=== PATIENT | male | born 1995 | race Caucasian/White ===

== ENCOUNTER 2022-03-17 16:22 | Observation (INO) | payer MEDICAID, SELFPAY ==
[2022-03-17 16:24] VITALS: BP 123/85; PULSE 81; RESP 18; TEMP 36.6; O2SAT 98; BMI 21.5
--- NOTE | 2022-03-17 16:38 | EDS_ITS ---
HPI History of Present Illness Chief Complaint: Substance Abuse Detail of Chief Complaint: Opiate use most of his life Informant: patient Onset/Context/Timing Onset: - (Years) Context: Gradual Onset Timing: Continuous Quality: Opiates Location: Snorts and injects recently Current Severity: Gone Maximum Severity: Moderate Worsened by: Abstinence Relieved by: Using Associated Symptoms Associated Symptoms: Positive for tremor and other: (Negative history of HIV and hepatitis. 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 Patient states he was discharged from palliative care in 2014. Since [address] drugs. He has never been in an inpatient setting. He was in an outpatient setting and on Suboxone in the past. He denies alcohol use. He does smoke. He understands that he is not permitted to smoke while on hospital grounds. Prior similar symptoms: No Recent Illness/Hospitalization: No PFSH PFSH Allergy/AdvReac Type Severity Reaction Status Date / Time No Known Allergies Allergy Verified 03/17/22 16:23 Social History (Updated 03/17/22 @ 16:[address] Romain Gomez MD) household members: none Smoking Status: Current every day smoker tobacco type: cigarettes alcohol intake: never substance use type: opiates ROS ROS ED Constitutional Constitutional ED: Denies chills, fever(s), subjective, sweats or weight loss Eyes Eyes: Denies blurry vision, change in vision or diplopia ENT ENT ED: Denies ear pain, rhinorrhea or sore throat Cardiovascular Cardiovascular: Denies chest pain, palpitations or racing heartbeat Respiratory/Chest Respiratory/Chest: Denies cough, dyspnea or dyspnea on exertion Gastrointestinal Gastrointestinal: Denies abdominal pain, diarrhea, nausea or vomiting Genitourinary Genitourinary ED: Denies dysuria or urinary frequency Musculoskeletal Musculoskeletal: Denies arthralgias, back pain, myalgias or neck pain Integumentary Denies abscess, Abrasions or rash Neurologic Neurologic: Denies headache(s), paresthesias or weakness Endocrine Endocrinology: Denies polydipsia, polyphagia or polyuria EXAM Physical Exam Const Vital Signs: 03/17/22 16:24 Temperature 97.8 F Temperature Source Temporal Pulse Rate 81 Respiratory Rate 18 Blood Pressure 123/85 H Blood Pressure Mean 97 Pulse Ox 98 Oxygen Delivery Method Room Air Positive well nourished and well developed General Appearance ED: well developed and NAD; Negative for pallor HEENT Reports TM's clear and moist mucous membranes HEENT Narrative: Normocephalic. atraumatic Tympanic Membrane ED: Yes TM's clear Eyes PERRL and EOMs intact bilaterally General Eye ED: Negative for pale conjunctiva or scleral icterus Neck no lymphadenopathy, supple and no JVD Lymph Lymphatic: no lymphadenopathy noted Resp normal respiratory effort and clear to auscultation bilaterally Cardio regular rate, regular rhythm, S1 normal heart sound, S2 normal heart sound and no murmurs GI soft to palpation, non-tender, non-distended and no masses Back/Spine no CVA tenderness Cervical Spine: Negative for cervical spine tenderness Thoracic Spine / Upper Back: Negative for thoracic spinal tenderness Lumbar Spine / Lower Back: Negative for lumbar spinal tenderness Neuro oriented x3, CN's II-XII intact bilaterally and no sensory deficits noted Sendy Coma Scale: document GCS findings Spontaneous Obeys Commands Oriented 15 Sensorium / Orientation: alert Motor Exam: strength 5/5 throughout Psych mental status grossly normal and thought process normal Skin General Skin Exam: Negative for jaundice or pallor Lesions: no lesions Rashes: no rashes MDM MDM MDM Narrative Medical decision making narrative: Longstanding opiate use. Patient sent in for hospitalization to treat his addiction. Patient was accepted by Dr. Ziggy Galvez at 10/11/2000. Lab Data Attestation: I reviewed the patient's lab results. (Addiction medicine labs were ordered. Per protocol hospitalist has been paged for admission. Patient understands rules.) Labs: Laboratory Results - last 24 hr 03/17/22 03/17/22 16:40 16:55 WBC 10.4 RBC 6.25 H Hgb 17.9 H Hct 51.1 MCV 81.8 MCH 28.6 MCHC 35.0 RDW Std Deviation 37.9 RDW Coeff of Betsy 12.7 Plt Count 151 MPV 11.5 Immature Gran % (Auto) 0.500 Neut % (Auto) 76.2 H Lymph % (Auto) 17.9 L [place] % (Auto) 4.6 Eos % (Auto) 0.5 Baso % (Auto) 0.3 Absolute Neuts (auto) 8.0 H Absolute Lymphs (auto) 1.87 Nucleated RBC % 0 Ur Drug Screen Comment Discharge Plan Dx/Rx/DC Orders Clinical Impression: Opiate addiction Disposition Disposition: Acute Care Hospital [facility]
--- NOTE | 2022-03-17 16:43 | CM.ED ---
Social Work Note Reason for Referral: Pt presents to [facility] for Substance Abuse/Detox SW met with pt. Pt confirms that he is at [facility] for detox and aware of rules. Pt states that he last used 1-2 hours ago. SW placed a call to Yomaira, Addiction Therapist, and updated on referral. Betty Smith ADDICTION PSYCHIATRIST, KITCH[employer] STEWARD[employer]
--- NOTE | 2022-03-17 16:49 | ED.RN ---
Patients belongings placed in patient bags. patient contract signed for detox
[2022-03-17 17:02] LABS: Absolute Lymphocyte Count 1.87 X10^3/uL (0.83-4.51); Basophil# 0.03 X10^3/uL; Basophil% 0.3 % (0-1); Eosinophil# 0.05 X10^3/uL; Eosinophils% 0.5 % (0-5); Hematocrit 51.1 % (40-54); Hemoglobin 17.9 g/dL (13.0-16.5); Lymphocyte # 1.87 X10^3/ul (0.83-4.51); Lymphocyte % 17.9 % (19-41); Mean Corpuscular Hgb 28.6 pg (27.0-32.0); Mean Corpuscular Volume 81.8 fL (80-94); Mean Platelet Vol. 11.5 fl (6.2-12.0); Monocyte# 0.48 X10^3/uL; Monocyte% 4.6 % (0-10); NRBC Flagged by Analyzer 0 % (0-5); Neutrophil # 7.95 X10^3/uL (2.7-7.7); Neutrophil % 76.2 % (47-70); Platelet Count 151 K/mm3 (150-450); RBC Distribution Width CV 12.7 % (11.6-14.6); RBC Distribution Width SD 37.9 fl (35.1-43.9); Red Blood Count 6.25 M/mm3 (4.6-6.2); White Blood Count 10.4 K/mm3 (4.4-11.0)
[2022-03-17 17:28] LABS: ALB/GLOB Ratio 1.1 RATIO (0.9-2.4); AST(SGOT) 142 U/L (15-37); Alanine Aminotransfer ALT/SGPT 108 U/L (16-61); Albumin, Serum 3.6 g/dL (3.2-5.0); Alkaline Phosphatase 110 U/L (45-117); Anion Gap 6 (5-15); BUN 12 mg/dL (7-18); BUN/Creat Ratio 13.9 RATIO (10-20); Calcium,Total 8.9 mg/dL (8.5-10.1); Chloride 106 mmol/L (98-107); Creatinine, Serum 0.87 mg/dL (0.70-1.30); EST Glomerular Filtration Rate 114 mL/min (>60); Est Glom Filt Rate - Afr Amer 138 mL/min (>60); Estimated Creatinine Clearance 111.09 ml/min; Globulin 3.3 g/dL (2.2-4.2); Glucose 100 mg/dL (74-106); Potassium 3.6 mmol/L (3.5-5.1); Protein, Total 6.9 g/dL (6.4-8.2); Sodium Level 140 mmol/L (136-145)
[2022-03-17 17:38] VITALS: BP 123/85; PULSE 81; RESP 18; TEMP 36.6; O2SAT 98
[2022-03-17 17:41] LABS: Amphetamine Urine VISTA POSITIVE (<1000 ng/mL); Barbiturate Urine VISTA NEGATIVE (< 200 ng/mL); Benzodiazepine Urine VISTA NEGATIVE (< 200 ng/mL); Cocaine Urine VISTA NEGATIVE (< 300 ng/mL); Ecstacy Urine VISTA POSITIVE (< 500 ng/mL); Methadone Urine VISTA NEGATIVE (< 300 ng/mL); PCP Urine VISTA NEGATIVE (< 25 ng/mL); THC Urine VISTA NEGATIVE (< 50 ng/mL); Vista UDS pH Range 5
[2022-03-17 17:59] VITALS: BP 116/73; PULSE 60; RESP 16; TEMP 36.7; O2SAT 100
[2022-03-17 18:00] VITALS: BMI 20.9
--- NOTE | 2022-03-17 18:39 | HP.PCM.HOS_ITS ---
HPI - General General Date of Admission: 03/17/22 Date of Service: 03/17/22 Chief Complaint: Desiring services for detox from opiates HPI Narrative DAVID ALMAGUER, is a 26 M who presents to the emergency room today at [facility] requesting services for detox from opiates. Patient has been a chronic opiate user since 2014, he was under palliative care at that time due to liver failure from a genetic reason. Patient underwent a liver transplant from his mother, he currently takes no antirejection medications. Patient states that he uses street drugs, he is not sure exactly what is in the drug-he believes it may be heroin or fentanyl, occasionally he states he uses methamphetamines. Patient denies any alcohol usage. Last time the patient used opiates was today. Patient snorts and injects them. Patient states he detoxified as an outpatient about a year ago on his own, he states he has a prescription for Suboxone at home but he is afraid to use it for detox because he might have symptoms and he prefers to detox in the hospital. Patient sees a Dr. Saeed in [place] as an addiction medicine doctor. Patient requests medication for sleep, he states that he cannot take trazodone or Seroquel due to the fact it causes restless legs. Patient has no complaints of any muscle pain, nervousness, or anxiety at this time. Patient will be admitted to [place] [address] under the opiate detox program here. [facility] Medical History (Updated 03/17/22 @ 18:06 by Mary Vilchis) Biliary atresia Duodenal atresia Portal hypertension Home Medications NK 03/17/22 [History Last Taken Unknown] Allergy/AdvReac Type Severity Reaction Status Date / Time clindamycin Allergy Anaphylaxis Verified 03/17/22 18:10 tobramycin Allergy Anaphylaxis Verified 03/17/22 18:10 morphine AdvReac violent, Verified 03/17/22 18:10 histamine reaction quetiapine [From Seroquel] AdvReac restless Verified 03/17/22 18:10 legs tramadol AdvReac seizures Verified 03/17/22 18:10 trazodone AdvReac restless Verified 03/17/22 18:10 legs Surgical History (Updated 03/17/22 @ 18:06 by Mary Vilchis) Liver transplant recipient Social History (Updated 03/17/22 @ 16:[address] Romain Gomez MD) household members: none Smoking Status: Current every day smoker tobacco type: cigarettes alcohol intake: never substance use type: opiates ROS Constitutional Constitutional: Denies anorexia, change in weight, fever(s), night sweats or weakness Eyes Eyes: Denies blurry vision, change in vision, discharge from eye(s) or eye pain Cardiovascular Cardiovascular: Denies chest pain, claudication, edema or palpitations Respiratory/Chest Respiratory/Chest: Denies cough, hemoptysis, shortness of breath at rest or shortness of breath with exertion Gastrointestinal Gastrointestinal: Denies abdominal pain, constipation, diarrhea, hematemesis, hematochezia, melena, nausea or vomiting Genitourinary Genitourinary: Denies dysuria, hematuria, urinary frequency, urinary hesitancy, urinary incontinence or urinary urgency Musculoskeletal Musculoskeletal: Denies back pain, joint pain, joint stiffness, joint swelling, myalgias or neck pain Neurologic Neurologic: Denies abnormal gait, abnormal speech, dizziness, focal weakness, headache(s), loss of vision, numbness, other visual disturbances, paresthesias, syncope or tingling Psychiatric Psychiatric: Denies anxiety, cognitive impairment, depression, irritability, mood swings or suicidal ideation Endocrine Endocrinology: Denies change in body appearance, cold intolerance, excessive sweating, heat intolerance, polydipsia or polyuria Hematologic/Lymphatic Hematologic/Lymphatic: Denies none, anemia, easy bleeding, easy bruising or lymphadenopathy Allergic/Immunologic Allergic/Immunologic: Denies rhinitis, urticaria, eczemia or asthma Vital Signs Vital Signs Vital Signs: 03/17/22 16:24 03/17/22 17:38 03/17/22 17:59 Temperature 97.8 F 97.8 F 98.1 F Temperature Source Temporal Oral Oral Pulse Rate 81 81 60 Respiratory Rate 18 18 16 Blood Pressure 123/85 H 123/85 H 116/73 Blood Pressure Mean 97 97 87 Blood Pressure Source Monitor Blood Pressure Position Semi-Fowlers Blood Pressure Location Right Arm Pulse Ox 98 98 100 Oxygen Delivery Method Room Air Room Air Room Air Weight Weight: 58.7 kg Body Mass Index (BMI) 20.9 Physical Exam Const alert, oriented x3, no apparent distress, healthy appearing and well nourished General Appearance: cooperative, well kempt and well developed Orientation / Consciousness: awake, oriented to person, oriented to place and oriented to time HEENT normocephalic, head/scalp atraumatic, hearing grossly normal bilaterally and moist oral mucous membranes Eyes PERRL, EOMs intact bilaterally and conjunctivae normal Neck nuchal rigidity, supple, no JVD, thyroid normal and no carotid bruits General: trachea midline Resp normal respiratory effort, no retractions, no use of accessory muscles and clear to auscultation bilaterally Auscultation: Negative for rales, rhonchi or wheezes Cardio regular rate, regular rhythm, S1 normal heart sound, S2 normal heart sound, no murmurs, no rub and no gallops GI normal to inspection, nondistended, normoactive bowel sounds, soft to palpation, non-tender and non-distended Extremity no clubbing, cyanosis or edema Skin no rashes or lesions noted General Skin Exam: no breakdown Neuro oriented x3, CN's II-XII intact bilaterally, no focal motor deficits and no sensory deficits noted Sensorium / Orientation: awake and alert Speech: speech normal Psych affect normal Results Lab / Micro Data Result Diagrams: 03/17/22 16:40 03/17/22 16:40 Labs: Laboratory Results - last 24 hr 03/17/22 16:40: WBC 10.4, RBC 6.25 H, Hgb 17.9 H, Hct 51.1, MCV 81.8, MCH 28.6, MCHC 35.0, RDW Std Deviation 37.9, RDW Coeff of Betsy 12.7, Plt Count 151, MPV 11.5, Immature Gran % (Auto) 0.500, Neut % (Auto) 76.2 H, Lymph % (Auto) 17.9 L, [place] % (Auto) 4.6, Eos % (Auto) 0.5, Baso % (Auto) 0.3, Absolute Neuts (auto) 8.0 H, Absolute Lymphs (auto) 1.87, Nucleated RBC % 0 03/17/22 16:40: Sodium 140, Potassium 3.6, Chloride 106, Carbon Dioxide 28.0, Anion Gap 6, BUN 12, Creatinine 0.87, Estim Creat Clear Calc 111.09, Est GFR (MDRD) Af Amer 138, Est GFR (MDRD) Non-Af 114, BUN/Creatinine Ratio 13.9, Glucose 100, Calcium 8.9, Total Bilirubin 0.80, AST 142 H, ALT 108 H, Alkaline Phosphatase 110, Total Protein 6.9, Albumin 3.6, Globulin 3.3, Albumin/Globulin Ratio 1.1 03/17/22 16:55: Urine Opiates Screen NEGATIVE, Urine Methadone Screen NEGATIVE, Ur Barbiturates Screen NEGATIVE, Ur Phencyclidine Scrn NEGATIVE, Ur Amphetamines Screen POSITIVE H, MDMA (Ecstasy) Screen POSITIVE H, U Benzodiazepines Scrn NEGATIVE, Urine Cocaine Screen NEGATIVE, U Cannabinoids Screen NEGATIVE, Ur Drug Screen Comment Assessment & Plan Assessment/Plan (1) Opiate addiction: PLAN: 1. Opiate addiction-patient desires services for opiate detox, he will be admitted to [place] [address], orders were entered using the opiate detox order set, patient will be placed on Zanaflex at night for sleep, he will not be using trazodone. Patient will be seen tomorrow by addiction social service technician. Patient states that he sees a Dr. Saeed in [place] for addiction medicine, he has a prescription for Subutex from Dr. Saeed. #2 remote history of liver transplant-patient's ALT is 108 and his AST is 142. Patient states his liver transplant was performed at [facility]. Charges/Coding Visit Charges Inpatient E&M: 77792 Init Hosp L3
[2022-03-17 19:18] LABS: Alcohol, Blood (Medical)-Serum < 3.0 mg/dL
[2022-03-17] MEDS: Methocarbamol 750 MG Tablet 1500 MG PO (20:06)
[2022-03-17] MEDS: MELATONIN 3 MG TABLET PO (21:52)
[2022-03-17] MEDS: tiZANidine HCl 2 MG Tablet 6 MG PO (21:52)
[2022-03-17] MEDS: Senna/Docusate Sodium 1 Tablet 2 TABLET PO (21:53)
[2022-03-17] MEDS: Gabapentin 300 MG Capsule PO (22:51)
[2022-03-17] MEDS: hydrOXYzine PAM 25 MG Capsule 50 MG PO (22:51)
[2022-03-17 23:21] VITALS: BP 115/71; PULSE 70; RESP 16; TEMP 36.4; O2SAT 97
[2022-03-18] MEDS: hydrOXYzine PAM 25 MG Capsule 50 MG PO ×3 (04:53→17:06)
[2022-03-18] MEDS: Buprenorphine HCl 2 MG TAB.SUBL SL ×3 (04:56→21:18)
[2022-03-18] MEDS: Ondansetron 8 MG Tablet PO (05:26)
[2022-03-18] MEDS: Methocarbamol 750 MG Tablet 1500 MG PO ×3 (06:34→20:32)
[2022-03-18] MEDS: cloNIDine HCl 0.1 MG Tablet PO ×2 (06:36→14:47)
[2022-03-18] MEDS: Gabapentin 300 MG Capsule PO ×2 (07:20→15:35)
[2022-03-18 08:49] VITALS: BP 112/61; PULSE 67; RESP 18; TEMP 37.1; O2SAT 97
[2022-03-18] MEDS: Dicyclomine 10 MG Capsule 20 MG PO ×2 (08:57→20:32)
[2022-03-18] MEDS: Nicotine Polacrilex 2 MG GUM PO ×3 (11:00→21:20)
--- NOTE | 2022-03-18 11:54 | ADDICTION ---
This software writer met with PT to conduct ASAM, MSE, AUDIT, DUDIT assessments and to plan for d/c. PT A+Ox4 and participated actively. All assessments completed and placed in PT's chart. PT plans to f/u with [facility] for follow-up residential treatment services. [facility] will provide transportation post d/c from [facility] tomorrow, Monday 03/19 between 10-12. They will call the nurses station when they arrive.
[2022-03-18 13:53] VITALS: BP 102/61; PULSE 69; RESP 18; TEMP 36.7; O2SAT 97
--- NOTE | 2022-03-18 15:55 | PCM.PN.HOSP ---
Subjective Subjective Patient was seen and examined today, he does not complain of feeling anxious or having muscle pains, he did state that Zanaflex he took last night for sleep did not help, he requested that I try Seroquel-he is not sure if it caused restless legs the last time he took it. Objective Data Objective Data Vital Signs: Vital Signs Temp Pulse Resp BP Pulse Ox 98.1 F 69 18 102/61 97 03/18/22 13:53 03/18/22 13:53 03/18/22 13:53 03/18/22 13:53 03/18/22 13:53 Oxygen Delivery Method Room Air Weight: 58.7 kg Body Mass Index (BMI) 20.9 Intake & Output: Intake and Output for Last 24 Hours 03/16/22 03/17/22 03/18/22 23:59 23:59 23:59 Intake Total 360 / 360 Balance 360 / 360 Medical Nutrition Assessment Dietitian: Malnutrition Criteria Met Start: 03/18/22 13:00 Freq: Status: Active Protocol: Document 03/18/22 15:15 RMA (Rec: 03/18/22 15:15 RMA [id number]) Nutrition Malnutrition Evidence of Malnutrition Exists Yes Malnutrition (severe): Social/Behavioral/ Environmental Evidenced By Suboptimal Energy Intake ( Severe),Weight Loss (Severe) Clinical Problem Chronic Disease or Condition Related Malnutrition Etiology Severe protein-calorie malnutrition in the context of social circumstance related to opiate addiction and inadequate oral intake Signs/Symptoms as evidenced by 11% wt loss in less than 2 months and PO meeting less than 50% estimated nutrition needs Status Active Problem Recommendation Dietitian Recommendations/Changes Continue regular diet. Will add 240 ml chocolate ensure enlive w/ lunch and chocolate magic cup w/ dinner. Will continue ensure enlive w/ medpass as tolerated. Lab / Micro Data Result Diagrams: 03/17/22 16:40 03/17/22 16:40 Labs: Laboratory Results - last 24 hr 03/17/22 16:40: WBC 10.4, RBC 6.25 H, Hgb 17.9 H, Hct 51.1, MCV 81.8, MCH 28.6, MCHC 35.0, RDW Std Deviation 37.9, RDW Coeff of Betsy 12.7, Plt Count 151, MPV 11.5, Immature Gran % (Auto) 0.500, Neut % (Auto) 76.2 H, Lymph % (Auto) 17.9 L, [place] % (Auto) 4.6, Eos % (Auto) 0.5, Baso % (Auto) 0.3, Absolute Neuts (auto) 8.0 H, Absolute Lymphs (auto) 1.87, Nucleated RBC % 0 03/17/22 16:40: Sodium 140, Potassium 3.6, Chloride 106, Carbon Dioxide 28.0, Anion Gap 6, BUN 12, Creatinine 0.87, Estim Creat Clear Calc 111.09, Est GFR (MDRD) Af Amer 138, Est GFR (MDRD) Non-Af 114, BUN/Creatinine Ratio 13.9, Glucose 100, Calcium 8.9, Total Bilirubin 0.80, AST 142 H, ALT 108 H, Alkaline Phosphatase 110, Total Protein 6.9, Albumin 3.6, Globulin 3.3, Albumin/Globulin Ratio 1.1 03/17/22 16:40: Ethyl Alcohol < 3.0 03/17/22 16:55: Urine Opiates Screen NEGATIVE, Urine Methadone Screen NEGATIVE, Ur Barbiturates Screen NEGATIVE, Ur Phencyclidine Scrn NEGATIVE, Ur Amphetamines Screen POSITIVE H, MDMA (Ecstasy) Screen POSITIVE H, U Benzodiazepines Scrn NEGATIVE, Urine Cocaine Screen NEGATIVE, U Cannabinoids Screen NEGATIVE, Ur Drug Screen Comment Physical Exam Const alert, oriented x3, no apparent distress, average body habitus and healthy appearing General Appearance: cooperative, well kempt and well developed Orientation / Consciousness: awake, oriented to person, oriented to place and oriented to time HEENT normocephalic and moist oral mucous membranes Eyes PERRL, EOMs intact bilaterally and conjunctivae normal Neck nuchal rigidity, supple, no JVD, thyroid normal and no carotid bruits General: trachea midline Resp normal respiratory effort and clear to auscultation bilaterally Auscultation: Negative for rales, rhonchi or wheezes Cardio regular rate, regular rhythm, no murmurs, no rub and no gallops GI normal to inspection, nondistended, normoactive bowel sounds, soft to palpation, non-tender and non-distended Extremity no clubbing, cyanosis or edema Skin no rashes or lesions noted General Skin Exam: no breakdown Neuro oriented x3, CN's II-XII intact bilaterally, no focal motor deficits and no sensory deficits noted Sensorium / Orientation: awake and alert Speech: speech normal Psych affect normal Assessment & Plan Assessment/Plan (1) Opiate addiction: PLAN: 1. Opiate addiction-continue present medications, the Zanaflex was discontinued and the patient was placed on Seroquel 100 mg nightly for sleep. #2 remote history of liver transplant-patient does not take antirejection drugs, he was taken off these medications years ago according to the patient Charges/Coding Visit Charges Inpatient E&M: 61124 Subs Hosp L2
[2022-03-18] MEDS: Acetaminophen 500 MG Tablet PO (17:06)
[2022-03-18 19:53] VITALS: BP 115/72; PULSE 79; RESP 18; TEMP 36.7; O2SAT 100
[2022-03-18] MEDS: Ibuprofen 600 MG Tablet PO (20:31)
[2022-03-18] MEDS: QUEtiapine 100 MG Tablet PO (21:18)
[2022-03-18] MEDS: MELATONIN 3 MG TABLET PO (21:18)
[2022-03-19 02:00] VITALS: BP 117/73; PULSE 57; RESP 18; TEMP 36.6; O2SAT 98
[2022-03-19] MEDS: cloNIDine HCl 0.1 MG Tablet PO (05:30)
[2022-03-19] MEDS: Buprenorphine HCl 2 MG TAB.SUBL SL (05:30)
[2022-03-19] MEDS: hydrOXYzine PAM 25 MG Capsule 50 MG PO (05:30)
[2022-03-19] MEDS: Methocarbamol 750 MG Tablet 1500 MG PO (05:30)
[2022-03-19] MEDS: Ibuprofen 600 MG Tablet PO (05:30)
--- NOTE | 2022-03-19 06:27 | NURSING ---
0550 medications not scanned - given during computer downtime
[2022-03-19] MEDS: Nicotine Polacrilex 2 MG GUM PO (08:23)
[2022-03-19 08:25] VITALS: BP 114/60; PULSE 80; RESP 16; TEMP 36.4; O2SAT 99
--- NOTE | 2022-03-19 11:07 | DCINST_ITS ---
Discharge Instructions Diet Discharge Diet: No restrictions Activity Discharge Activity: Return to Normal Activity Weight Bearing Status: Full weight bearing Follow Up Care Test Results: Test results from this visit will be discussed in further detail at your follow- up appointment, if applicable. Discharge Plan Admission Admit Date/Time: 03/17/22 16:54 Primary Reason for Your Visit: opiate detox Attending Provider: Ziggy Burns Primary Care Provider: Care Physician,No Primary Instructions Additional Instructions / Restrictions: Go to [facility] as scheduled for further treatment Discharge Orders/Prescriptions Prescriptions: No Action NK Referrals / Follow Up: Care Physician,No Primary [Primary Care Provider] - [facility] Doctor,Out of [NON-STAFF] - Disposition Disposition (needs filled in before D/C Order can be placed): DC/Tx to Another Type of HCF
--- NOTE | 2022-03-21 16:50 | PCM.DC.SUM ---
Providers Date of Admission: 03/17/22 Date of Discharge: 03/19/22 Primary Care Physician: No Primary Care Phys Reason For Visit: OPIAE WITHDRAWAL Diagnosis Discharge Diagnosis (1) Opiate addiction: Status: Acute Code(s): F11.20 - Opioid dependence, uncomplicated Plan 1. Opiate addiction #2 protein and caloric malnutrition as evidenced by 11% weight loss in less than 2 months and p.o. intake meeting less than 50% of estimated nutritional needs-patient was administered 240 mL of chocolate Ensure Enlive with lunch and chocolate Magic cup with dinner, patient was seen by nutritional services and was followed during his hospitalization. Medications at Discharge Home Medications NK 03/17/22 Hospital Course Operations None Procedures None Summary of Care Provided Minutes Spent on Discharge: 31 Hospital Course: This 26-year-old white male was seen in the emergency room at [facility] desiring services for opiate detox, he was admitted to [place] [address], seen in consultation by addiction social media content manager, and was seen by nutritional services who felt that the patient had severe caloric and protein malnutrition. Arrangements were made for the patient to go to an inpatient facility for opiate detox services at the time of discharge from the hospital. On 03/19/2022, patient was seen and examined: On examination he appeared in good health and spirits. Vital signs as documented. Skin warm and dry and without overt rashes. Neck without JVD, neck was supple, trachea midline, thyroid was normal. Lungs clear bilaterally, normal air movement was noted. Heart exam notable for regular rhythm, normal sounds and absence of murmurs, rubs or gallops. Abdomen unremarkable and without evidence of organomegaly, masses, or abdominal aortic enlargement. Bowel sounds are present, abdomen is not distended. Extremities nonedematous, no cyanosis was noted, no clubbing was noted. Neuro: Cranial nerves II through XII are grossly intact, no focal motor deficits were noted, sensation to light touch and pinprick intact, motor exam 5/5 throughout. Psych: Patient is alert and oriented x3, he does not appear anxious or depressed, he does not appear agitated. Patient was discharged to an inpatient detox center on 03/19/2022 in stable condition Weight / BMI Weight Weight: 58.7 kg Body Mass Index (BMI) 20.9 ABG / Lab / Microbiology Data Result Diagrams: 03/17/22 16:40 03/17/22 16:40 D/C Instructions Discharge Diet: No restrictions Weight Bearing Status: Full weight bearing Meaningful Use Info Meaningful Use Diagnoses (Choose all that apply): None applicable Discharge Plan Admission Admit Date/Time: 03/17/22 16:54 Primary Reason for Your Visit: opiate detox Attending Provider: Ziggy Burns Primary Care Provider: Care Physician,No Primary Instructions Additional Instructions / Restrictions: Go to [place] as scheduled for further treatment Discharge Orders/Prescriptions Prescriptions: No Action NK Referrals / Follow Up: Care Physician,No Primary [Primary Care Provider] - [facility] Doctor,Out of [NON-STAFF] - Disposition Disposition (needs filled in before D/C Order can be placed): DC/Tx to Another Type of HCF Charges/Coding Visit Charges Inpatient E&M: 69205 Disch Hosp
== END 2022-03-19 11:15 | disposition other institution (70) | DRG 773 ==
LOC: ED 17:15 → MS3 17:19
PROVIDERS: Admitting Provider Internal Medicine; Emergency Provider Emergency Medicine; Visit Provider Internal Medicine
DX: F11.23 Opioid dependence with withdrawal (principal); Z94.4 Liver transplant status; E43 Unspecified severe protein-calorie malnutrition; F17.210 Nicotine dependence, cigarettes, uncomplicated; Z68.20 Body mass index [BMI] 20.0-20.9, adult
CPT/HCPCS: 36415; 80053; 80307; 82077; 85025; 97802; 99218; 99283; 99406; G0378